=== PATIENT | female | born 1955 | race Caucasian/White ===

== ENCOUNTER → 2018-10-16 | Outpatient (CLI) | payer OTHER | LOC: RAD 12:52 | DX: M47.813 Spondylosis without myelopathy or radiculopathy, cervicothoracic region (principal) ==

== ENCOUNTER 2021-04-03 12:11 | Emergency (ER) | payer OTHER ==
[~2021-04-03] VITALS: Ht 165.1 cm; Wt 65.8 kg
[2021-04-03] MEDS ORDERED: ULTRAM 50MG TAB50 MG PO (12:50)
[2021-04-03 13:58] VITALS: BP 127/72
== END 2021-04-03 13:58 | disposition home or self-care (01) ==
LOC: ER 12:11
DX: S42.295A Other nondisplaced fracture of upper end of left humerus, initial encounter for closed fracture (principal); V87.8XXA Person injured in other specified noncollision transport accidents involving motor vehicle (traffic), initial encounter; Y93.89 Activity, other specified; Y92.89 Other specified places as the place of occurrence of the external cause; Y99.8 Other external cause status